=== PATIENT | male | born 2000 | race Caucasian/White ===

== ENCOUNTER 2022-03-06 14:42 | Outpatient (CLI) | payer OTHER ==
--- NOTE | 2022-03-06 16:07 | XRAY Report ---
PROCEDURE: Hand 3 View LT INDICATIONS: CONTUSION OF LEFT MIDDLE FINGER TECHNIQUE: 4 views of the hand(s) acquired. COMPARISON: None FINDINGS: Bones: No fractures or dislocations. No suspicious bony lesions. Soft tissues: No suspicious soft tissue calcifications. IMPRESSION: No gross acute left and or left third finger fracture. Reviewed by: Anil Perry MD on 03/06/2022 4:06 PM [facility] [[email or web address]] Approved by: Anil Perry MD on 03/06/2022 4:06 PM [facility] [[email or web address]] Station ID: [id number]
== END 2022-03-06 14:43 | disposition home or self-care (01) ==
LOC: DI 14:42
PROVIDERS: ATTEND Physician Assistant
DX: S60.032A Contusion of left middle finger without damage to nail, initial encounter (principal)